=== PATIENT | female | born 1955 | race Caucasian/White ===

== ENCOUNTER 2016-08-17 12:46 | Outpatient (CLI) | payer BC | END 2016-08-17 12:47 | disposition home or self-care (01) | DX: Z12.31 Encounter for screening mammogram for malignant neoplasm of breast (principal) ==

== ENCOUNTER 2016-08-17 12:47 | Outpatient (CLI) | payer BC | END 2016-08-17 12:48 | disposition home or self-care (01) | DX: Z13.820 Encounter for screening for osteoporosis (principal); M81.0 Age-related osteoporosis without current pathological fracture; Z78.0 Asymptomatic menopausal state ==

== ENCOUNTER 2016-11-13 09:10 | Outpatient (CLI) | payer BC | END 2016-11-13 23:59 | DX: R30.0 Dysuria (principal) ==

== ENCOUNTER 2017-03-18 06:03 | Day surgery (SDC) | payer BC ==
[2017-03-18] MEDS ORDERED: LACTATED RINGERS 1,000 ML IV ONE (06:28)
--- NOTE | 2017-03-18 07:41 | HISTORY & PHYSICAL EXAMINATION ---
HPI - History of Present Illness HPI Comment/Other: History of Present Illness: patient is here for screening colonoscopy. Last performed 12 years ago and per patient was normal. Current Meds: VITAMIN D 1000 UNIT TABS (CHOLECALCIFEROL) Take six tablet by mouth daily for vit D deficiency LEVOTHYROXINE SODIUM 150 MCG ORAL TABS (LEVOTHYROXINE SODIUM) Take one tablet by mouth daily Past Medical History: Reviewed history and no changes required: Hypothyroidism R/mid thoracic pressure Hypovitaminosis D Rosacea Increased LFTs Hyperglycemia Past Surgical History: Reviewed history and no changes required: papilloma laser treatment Family History Summary: Reviewed history and no changes required: 12/02/2016 Mother (biol.) - Has Family History of Other Medical Problems - ovarian cancer - Entered On: 12/02/2016 Brother (full) - Has Family History of Other Medical Problems - Type I diabetes - Entered On: 12/02/2016 Social History: Reviewed history and no changes required: Problems were reviewed with the patient during this visit. Medications were reviewed with the patient during this visit. Allergies were reviewed with the patient during this visit. No known allergies. Physical Exam General: well developed, well nourished, in no acute distress Lungs: clear bilaterally to A & P Heart: regular rate and rhythm, S1, S2 without murmurs, rubs, gallops, or clicks Abdomen: bowel sounds positive; abdomen soft and non-tender without masses, organomegaly, or hernias noted Pulses: pulses normal in all 4 extremities Extremities: no clubbing, cyanosis, edema, or deformity noted with normal full range of motion of all joints Cervical Nodes: no significant adenopathy Psych: alert and cooperative; normal mood and affect; normal attention span and concentration Problems: Problems Added: 1) Dx of Screening, colon cancer ([id number]-C76.11) (ICD-V76.51) Impression & Recommendations: Problem # 1: surveillance for colon cancer Proceed with colonoscopy PMH/PSH - Past Medical History Cardiovascular: positive: None Respiratory: positive: None Endocrine/Autoimmune: positive: HyPOthyroidism GI: positive: None : positive: None HEENT: positive: None Psych: positive: None Musculoskeletal: positive: None Derm: positive: None MRSA Hx?: No - Past Surgical History General: positive: Colonoscopy Meds/Allgy - Home Medications Home Medications: Ambulatory Orders Medication Instructions Recorded Confirmed Levothyroxine [Synthroid] 50 mcg PO QDAC 08/23/17 08/24/17 - Allergies Allergies/Adverse Reactions: Allergies Allergy/AdvReac Type Severity Reaction Status Date / Time No Known Drug Allergies Allergy Verified 03/17/17 12:46 Exam - Vital Signs Vital Signs: Vital Signs x48h Temp Resp BP Pulse Ox 03/18/17 06:29 36.4 C L 18 135/95 H 96
[2017-03-18] MEDS ORDERED: MIDAZOLAM 2 MG/2 ML VIAL IVP ONE (08:20)
[2017-03-18] MEDS ORDERED: fentaNYL 100 MCG/2 ML VIAL IVP ONE (08:20)
[2017-03-18 08:43] VITALS: BP 112/74
== END 2017-03-18 06:04 | disposition home or self-care (01) ==
LOC: SDS 06:03
PROVIDERS: ATTEND Surgery
PROC: 0DBP8ZX Excision of Rectum, Via Natural or Artificial Opening Endoscopic, Diagnostic (ICD-10-PCS; principal; 2017-03-18 07:30)
DX: Z12.11 Encounter for screening for malignant neoplasm of colon (principal); K62.1 Rectal polyp; K57.30 Diverticulosis of large intestine without perforation or abscess without bleeding; K64.8 Other hemorrhoids; E03.9 Hypothyroidism, unspecified
CPT/HCPCS: 45380; J7120

== ENCOUNTER 2017-08-20 09:36 | Outpatient (CLI) | payer BC ==
[2017-08-20 17:42] LABS: BASOPHILS # (AUTO) 0.1 10^3/uL (0.0-0.1); BASOPHILS % (AUTO) 1.4 %; EOSINOPHILS # (AUTO) 0.2 10^3/uL (0.0-0.7); EOSINOPHILS % (AUTO) 5.2 %; HGB - HEMOGLOBIN 13.4 g/dL (12.0-16.0); LYMPHOCYTES # (AUTO) 1.5 10^3/uL (1.5-3.5); LYMPHOCYTES % (AUTO) 35.4 %; MEAN CORPUSCULAR HEMOGLOBIN 31.2 pg (27.0-31.0); MEAN CORPUSCULAR HGB CONC 32.7 g/dL (32.0-36.0); MEAN CORPUSCULAR VOLUME 95.5 fL (81.0-99.0); MEAN PLATELET VOLUME 7.9 fL (7.9-10.8); MONOCYTES # (AUTO) 0.4 10^3/uL (0.0-1.0); MONOCYTES % (AUTO) 9.5 %; NEUTROPHILS # (AUTO) 2.1 10^3/uL (1.5-6.6); NEUTROPHILS % (AUTO) 48.5 %; PLT - PLATELET COUNT 184 10^3/uL (130-450); RED BLOOD COUNT 4.29 10^6/uL (4.20-5.40); RED CELL DISTRIBUTION WIDTH 14.3 % (12.0-15.0); WHITE BLOOD COUNT 4.3 x10^3/uL (4.8-10.8)
[2017-08-20 18:09] LABS: ALBUMIN 4.4 g/dL (3.2-5.5); ALBUMIN/GLOBULIN RATIO 1.4 (1.0-2.2); ALKALINE PHOSPHATASE 88 IU/L (42-121); ALT ALANINE AMINOTRANSFERASE 22 IU/L (10-60); AST ASPARTATE AMINOTRANSFERASE 25 IU/L (10-42); BILIRUBIN,TOTAL 0.9 mg/dL (0.2-1.0); BUN - BLOOD UREA NITROGEN 16 mg/dL (6-20); CALCIUM 9.1 mg/dL (8.5-10.3); CARBON DIOXIDE - CO2 27 mmol/L (21-32); CHLORIDE 106 mmol/L (101-111); CHOL/HDL RATIO 4.5 (<4.4); CHOLESTEROL 268 mg/dL; CREATININE 0.8 mg/dL (0.4-1.0); GFR - MDRD 72 (>89); GLUCOSE 97 mg/dL (70-100); HDL CHOLESTEROL 59 mg/dL; LDL CHOLESTEROL,CALCULATED 180 mg/dL; LDL/HDL RATIO 3.1 (<4.4); SODIUM 138 mmol/L (135-145); TOTAL PROTEIN 7.6 g/dL (6.7-8.2); VLDL CHOLESTEROL 29 mg/dL
[2017-08-20 18:35] LABS: HB2 TOTAL 14.4 g/dL; HEMOGLOBIN A1C 0.45 g/dL
[2017-08-21 12:56] LABS: HEPATITIS C ANTIBODY NON-REACTIVE (NON-REACTIVE)
== END 2017-08-20 09:37 | disposition home or self-care (01) ==
LOC: LAB.F 09:36
PROVIDERS: ATTEND Physician Assistant Medical
DX: Z00.00 Encounter for general adult medical examination without abnormal findings (principal); E55.9 Vitamin D deficiency, unspecified; R73.9 Hyperglycemia, unspecified; Z79.899 Other long term (current) drug therapy; Z11.59 Encounter for screening for other viral diseases; E03.9 Hypothyroidism, unspecified
CPT/HCPCS: 36415; 80053; 80061; 82306; 83036; 83721; 84443; 85025; 86803

== ENCOUNTER 2017-08-26 14:00 | Outpatient (CLI) | payer BC | END 2017-08-26 14:01 | disposition home or self-care (01) | LOC: LAB.R 14:00 | PROVIDERS: ATTEND Physician Assistant Medical | DX: R30.0 Dysuria (principal) | CPT/HCPCS: 87086 ==

== ENCOUNTER 2017-09-03 13:08 | Outpatient (CLI) | payer BC ==
[2017-09-03 17:35] LABS: BILIRUBIN,URINE NEGATIVE (NEGATIVE); GLUCOSE, URINE (UA) NEGATIVE (NEGATIVE); KETONES,URINE (UA) TRACE mg/dL (NEGATIVE); LEUKOCYTE ESTERASE, URINE NEGATIVE (NEGATIVE); NITRITE,URINE NEGATIVE (NEGATIVE); OCCULT BLOOD,URINE NEGATIVE (NEGATIVE); PH,URINE 5.5 PH (5.0-7.5); PROTEIN,URINE NEGATIVE (NEGATIVE); UROBILINOGEN,URINE 0.2 (NORMAL) E.U./dL (NORMAL)
[2017-09-03 17:37] LABS: CLARITY,URINE CLOUDY (CLEAR)
[2017-09-03 17:49] LABS: BACTERIA,URINE None Seen /HPF (None Seen); RBC,URINE 0-5 /HPF (0-5); SQUAMOUS EPITHELIAL CELL,UR NONE SEEN (<= Few)
== END 2017-09-03 13:09 | disposition home or self-care (01) ==
LOC: LAB.F 13:08
PROVIDERS: ATTEND Physician Assistant Medical
DX: R30.0 Dysuria (principal)
CPT/HCPCS: 81001; 81003; 87086

== ENCOUNTER 2017-09-09 07:59 | Outpatient (CLI) | payer BC ==
[2017-09-09] MEDS ORDERED: IOPAMIDOL-300 100 ML VIAL ONE (08:32)
[2017-09-09] MEDS ORDERED: IOPAMIDOL-300 100 ML VIAL IVP ONE (09:35)
--- NOTE | 2017-09-09 15:54 | CT Report ---
CT ABDOMEN AND PELVIS WITH CONTRAST: 09/09/2017 CLINICAL INDICATION: Right flank pain. TECHNIQUE: Axial CT images of the abdomen and pelvis were obtained prior to and following 100 mL Isovue 300 intravenously, using split bolus technique. No previous CT is available for comparison. FINDINGS: Limited evaluation of the lung bases is unremarkable. ABDOMEN: On the unenhanced images, there is no evidence of nephrolithiasis or hydronephrosis. The kidneys demonstrate symmetric uptake and excretion of contrast. No focal parenchymal lesion or renal collecting system lesion is identified. Allowing for the phase of contrast enhancement, the liver, spleen, pancreas and adrenal glands appear unremarkable. The gallbladder is not dilated. No bowel dilatation, free gas, or free fluid is present. No abdominal adenopathy is seen. PELVIS: The distal ureters and urinary bladder appear unremarkable. Incidental note is made of a 3.1 cm right ovarian dermoid. No pelvic adenopathy or free fluid is present. Sigmoid diverticulosis is present, without CT evidence of diverticulitis. Osseous structures demonstrate degenerative changes. IMPRESSION: NO EVIDENT ETIOLOGY FOR PATIENT'S RIGHT FLANK PAIN. NO NEPHROLITHIASIS OR FOCAL RENAL ABNORMALITY. INCIDENTAL RIGHT OVARIAN DERMOID. In accordance with CT protocol optimization, one or more of the following dose reduction techniques were utilized for this exam: automated exposure control, adjustment of mA and/or KV based on patient size, or use of iterative reconstructive technique. TD: 09/09/2017 15:54
== END 2017-09-09 08:00 | disposition home or self-care (01) ==
LOC: DI 07:59
PROVIDERS: ATTEND Physician Assistant Medical
DX: R10.9 Unspecified abdominal pain (principal); M51.34 Other intervertebral disc degeneration, thoracic region
CPT/HCPCS: 72070; 74178; Q9967

== ENCOUNTER 2017-09-09 08:00 | Outpatient (CLI) | payer BC ==
--- NOTE | 2017-09-09 14:15 | XRAY Report ---
TWO VIEW THORACIC SPINE: 09/09/2017 CLINICAL INDICATION: Back pain. FINDINGS: Frontal and lateral views of the thoracic spine demonstrate mild degenerative disk disease. There is no evidence of compression fracture. No paraspinal hematoma is seen. IMPRESSION: MILD DEGENERATIVE DISK DISEASE. TD: 09/09/2017 14:14
== END 2017-09-09 08:01 | disposition home or self-care (01) ==
LOC: DI 08:00
PROVIDERS: ATTEND Physician Assistant Medical
DX: M51.34 Other intervertebral disc degeneration, thoracic region (principal)
CPT/HCPCS: 72070

== ENCOUNTER 2017-10-01 08:10 | Outpatient (CLI) | payer BC | END 2017-10-01 08:11 | disposition home or self-care (01) | LOC: LAB.F 08:10 | PROVIDERS: ATTEND Physician Assistant Medical | DX: E03.9 Hypothyroidism, unspecified (principal); Z79.899 Other long term (current) drug therapy | CPT/HCPCS: 36415; 84443 ==

== ENCOUNTER 2017-10-11 06:09 | Outpatient (CLI) | payer BC | END 2017-10-11 06:10 | disposition home or self-care (01) | LOC: LAB 06:09 | PROVIDERS: ATTEND Physician Assistant Medical | DX: Z79.899 Other long term (current) drug therapy (principal) | CPT/HCPCS: 36415; 82565 ==

== ENCOUNTER 2017-10-11 07:06 | Outpatient (CLI) | payer BC ==
[2017-10-11] MEDS ORDERED: GADOBUTROL 10 MMOL/10 ML VIAL ONE (07:51)
[2017-10-11] MEDS ORDERED: GADOBUTROL 10 MMOL/10 ML VIAL IVP ONE (08:24)
--- NOTE | 2017-10-11 17:23 | MRI Report ---
EXAM: MRI BRAIN WITHOUT AND WITH CONTRAST EXAM DATE: 10/11/2017 08:26 AM. CLINICAL HISTORY: Headache,neck pain, right. COMPARISON: None. TECHNIQUE: Multiplanar, multisequence T1-weighted and fluid-sensitive MR sequences of the brain were performed. Sequences optimized for routine evaluation. Other: None. IV Contrast: 8 mL Gadavist. FINDINGS: The diffusion-weighted images are normal. There is no evidence of acute or subacute cerebral infarcti on. There is a mucous retention cyst demonstrated at the base of the right maxillary sinus. There is a mi ld degree of mucosal thickening in the left maxillary sinus. The cerebral vascular flow voids are patent. The images are degraded by motion. The T2 axial FLAIR images are normal. The T2* sequence is normal. There is no evidence of subacute or chronic hemorrhage. The optic nerves demonstrate symmetric signal intensity and size. The bilateral parotid spaces exhibit normal signal intensity. There is a mucous retention cyst in the right maxillary sinus. The optic nerves demonstrate symmetric signal intensity and size. The cerebral vascular flow voids are patent. There is normal enhancement within the deep venous sinuses. There is normal enhancement within the br ain parenchyma. IMPRESSION: 1. The images are degraded by motion. 2. There is no significant white matter disease. 3. There is no evidence of acute or subacute cerebral infarction. 4. There is no evidence of brain mass. Referring Provider Line: [phone] SITE ID: [id number]
--- NOTE | 2017-10-12 14:11 | Ultrasound Report ---
CAROTID DUPLEX: 10/11/2017 CLINICAL INDICATION: Headache, neck pain. TECHNIQUE: Real-time sonographic vascular imaging was performed by the blow pit operator through the carotid arteries utilizing both color-flow and Doppler spectral analysis. Multiple paper sales representative static images were saved for review. RIGHT Vessel PSV cm/sec EDV cm/sec ICA/CCA RSV Ratio Degree of Stenosis Plaque Estimate % RCCA Prox 67 -- -- RCCA Dist 67 22 -- RECA 64 -- -- RT BULB 57 21 0.85 AKILAH Prox 70 26 1.04 AKILAH Mid 83 29 1.23 AKILAH Dist 74 26 1.10 RVA 53 -- -- RVA flow direction: Antegrade LEFT Vessel PSV cm/sec EDV cm/sec ICA/CCA RSV Ratio Degree of Stenosis Plaque Estimate % LCCA Prox 114 -- -- LCCA Dist 67 24 -- LECA 57 -- -- LFT BULB 50 17 0.74 LICA Prox 39 17 0.58 LICA Mid 79 26 1.1 LICA Dist 57 15 0.85 LVA 56 -- -- LVA flow direction: Antegrade Velocity criteria are extrapolated from diameter data as defined by the Society of Radiologists in Ultrasound Consensus Conference Radiology 2003; 229; 340-346. Degree of Stenosis % ICA PSV cm/sec ICA EDV cm/sec ICA/CCA PSV Ratio Plaque Estimate % Normal < 125 < 40 < 2.0 None <50 < 125 < 40 < 2.0 < 50 50-69 125-130 40-100 2.0-4.0 >/=50 >/=70 but less than near occlusion > 230 > 100 > 4.0 >/=50 Near occlusion High, low or undetectable Variable Variable Visible Total occlusion Undetectable Not applicable Not applicable No detectable lumen FINDINGS RIGHT: There is minimal plaquing in the right carotid bifurcation, without evidence of a focal hemodynamically significant stenosis. LEFT: There is minimal plaquing in the left carotid bifurcation, without evidence of a focal hemodynamically significant carotid stenosis. The vertebral arteries demonstrate antegrade flow bilaterally. IMPRESSION: MINIMAL PLAQUING BILATERALLY. NO EVIDENCE OF A FOCAL HEMODYNAMICALLY SIGNIFICANT CAROTID STENOSIS. TD: 10/11/2017 09:42 [facility]
== END 2017-10-11 07:07 | disposition home or self-care (01) ==
LOC: DI 07:06
PROVIDERS: ATTEND Physician Assistant Medical
DX: R51 Headache (principal); M54.2 Cervicalgia; Z79.899 Other long term (current) drug therapy
CPT/HCPCS: 36415; 70553; 82565; 93880; A9585

== ENCOUNTER 2019-03-17 14:48 | Outpatient (CLI) | payer MEDICARE, OTHER ==
--- NOTE | 2019-03-17 16:09 | Mammography Report ---
Reason: SCREENING MAMMO Procedure Date: 03/17/2019 Accession Number: [id number] / [id number] Procedure: SHANTELLE - Screening Mammo w/[place] CPT Code: FULL RESULT: EXAM: Screening Mammo w/[place] DATE: 03/17/2019 3:16 PM CLINICAL HISTORY: Routine screening. No reported personal or family history of breast cancer. TECHNIQUE: (B) - Bilateral CC and MLO views were obtained. COMPARISON: 08/17/2016, 04/30/2014 PARENCHYMAL PATTERN: (A) - The breasts demonstrate scattered fibroglandular densities bilaterally. FINDINGS: Bilateral breasts: There are no suspicious masses, calcifications, or areas of distortion. IMPRESSION: Negative examination. BI-RADS category 1. RECOMMENDATION: (ANNUAL) - Recommend routine annual screening mammography. BI-RADS CATEGORY: (1) - Negative. STANDARD QUALIFYING STATEMENTS: 1. This examination was not reviewed with the aid of Computer-Aided Detection (CAD). 2. A negative or benign imaging report should not preclude biopsy if clinically suspicious findings are present. 3. Dense breasts may obscure an underlying neoplasm. 4. This examination was reviewed with the aid of 3D breast imaging (tomosynthesis).
== END 2019-03-17 14:49 | disposition home or self-care (01) ==
LOC: DI 14:48
PROVIDERS: ATTEND Nurse Practitioner
DX: Z12.31 Encounter for screening mammogram for malignant neoplasm of breast (principal)
CPT/HCPCS: 77063; 77067

== ENCOUNTER 2019-03-28 12:46 | Outpatient (CLI) | payer MEDICARE, OTHER ==
--- NOTE | 2019-03-28 15:07 | XRAY Report ---
Reason: HX OF NORMAL MENOPAUSE,OA,HIPS BILAT Procedure Date: 03/28/2019 Accession Number: [id number] / [id number] Procedure: XR - Hip w/Pelvis 2-3V LT CPT Code: FULL RESULT: EXAM: LEFT HIP RADIOGRAPHY EXAM DATE: 03/28/2019 01:31 PM. CLINICAL HISTORY: History of normal menopause. Left hip pain x 2 months. Osteoarthritis of hips, bilateral. COMPARISON: None. TECHNIQUE: 2 views. FINDINGS: Bones: Minimal osteophytic spurring of the lateral acetabular margin. No fractures or bone lesion. Joints: Normal. No dislocation. The hip joint space is preserved. Soft Tissues: Normal. No soft tissue swelling. On AP exam, subtle amorphous calcification of the lateral right true pelvis, possibly related to bowel. IMPRESSION: Minimal degenerative changes at the left hip. RADIA
--- NOTE | 2019-03-29 08:58 | DEXA Report ---
Reason: HX OF NORMAL MENOPAUSE,OA,HIPS BILAT Procedure Date: 03/28/2019 Accession Number: [id number] / [id number] Procedure: DEX - Dexa Spine and/or Hip CPT Code: FULL RESULT: EXAM: Dexa Spine and/or Hip DATE: 03/28/2019 1:45 PM CLINICAL HISTORY: HX OF NORMAL MENOPAUSE,OA,HIPS BILAT thyroid disorder. TECHNIQUE: Dual energy x-ray absorptiometry (DXA) was performed on a [employer] System. Regions measured are the AP Spine, femoral neck, and if needed forearm. COMPARISON: 08/17/2016 In accordance with the International Society for Clinical Densitometry (ISCD) guidelines, data from previous exams may be reanalyzed using current recommendations and techniques. This is done to allow a more accurate basis for comparison with the current study. FINDINGS: The data for the lumbar spine is as follows: BMD (g/cm/cm) T-SCORE Z-SCORE REGION L1 0.727 -3.4 -2.9 L2 0.830 -3.1 -2.6 L3 0.863 -2.8 -2.4 L4 0.980 -1.8 -1.4 TOTAL 0.860 -2.7 -2.2 NOTE: All evaluable vertebrae are used for classification The data for the hip is as follows: BMD (g/cm/cm) T-SCORE Z-SCORE REGION Neck 0.731 -2.2 -1.5 TOTAL 0.766 -1.9 -1.5 NOTE: The femoral neck or total proximal femur, whichever is lowest, is used for classification. DXA RESULTS SUMMARY: Spine SCAN DATE AGE BMD CHANGE VS CHANGE VS PREVIOUS PREVIOUS % 1/28[birth year][age] 0[age]860 -0.026 -2.9 08[age]17/[age] 0[age]886 * Denotes significant change at the 95% confidence level. Denotes dissimilar scan types or analysis methods. DXA RESULTS SUMMARY: Hip SCAN DATE AGE BMD CHANGE VS CHANGE VS PREVIOUS PREVIOUS % 1/28[birth year]2019 64.1 0.766 -0.029 -3.6 [birth year]17[birth year]2016 61.5 0.795 * Denotes significant change at the 95% confidence level. Denotes dissimilar scan types or analysis methods. IMPRESSION: THE WHO CLASSIFICATION BASED ON THE INTERNATIONAL REFERENCE STANDARD IS OSTEOPOROSIS, REFERENCE LUMBAR SPINE. THE FRACTURE RISK IS HIGH. RECOMMENDATION: Patients with diagnosis of osteoporosis or osteopenia should have regular bone mineral density assessment. For those eligible for Medicare, routine testing is allowed once every 2 years. Testing frequency can be increased for patients who have rapidly progressing disease or for those who are receiving medical therapy to restore bone mass. COMMENT: World Health Organization (WHO) definitions for osteoporosis and osteopenia: NORMAL BMD: T-score at -1.0 or higher, fracture risk is low OSTEOPENIA BMD: T-score between -1.0 and -2.5, fracture risk is increased. OSTEOPOROSIS BMD: T-score at -2.5 or lower, fracture risk is high. National Osteoporosis Foundation recommends: 1. Obtain adequate dietary calcium (at least 1200 mg per day) and vitamin D (400-800 international units per day). 2. Participate, as appropriate, in regular weightbearing and muscle-strengthening exercise. 3. Avoid tobacco use and reduce alcohol and caffeine intake. 4. For more detailed information see the website at www.NOF.org.
== END 2019-03-28 12:47 | disposition home or self-care (01) ==
LOC: DI 12:46
PROVIDERS: ATTEND Nurse Practitioner
DX: M81.0 Age-related osteoporosis without current pathological fracture (principal); M16.12 Unilateral primary osteoarthritis, left hip
CPT/HCPCS: 77080

== ENCOUNTER 2019-06-09 08:26 | Outpatient (CLI) | payer MEDICARE, OTHER ==
[2019-06-09 10:30] LABS: BASOPHILS % (AUTO) 0.5 %; EOSINOPHILS # (AUTO) 0.2 10^3/uL (0.0-0.7); EOSINOPHILS % (AUTO) 5.1 %; LYMPHOCYTES # (AUTO) 1.4 10^3/uL (1.5-3.5); LYMPHOCYTES % (AUTO) 36.2 %; MEAN CORPUSCULAR HEMOGLOBIN 29.9 pg (27.0-31.0); MEAN CORPUSCULAR HGB CONC 32.1 g/dL (32.0-36.0); MEAN CORPUSCULAR VOLUME 93.1 fL (81.0-99.0); MEAN PLATELET VOLUME 9.2 fL (7.9-10.8); MONOCYTES # (AUTO) 0.4 10^3/uL (0.0-1.0); MONOCYTES % (AUTO) 10.9 %; NEUTROPHILS # (AUTO) 1.8 10^3/uL (1.5-6.6); PLT - PLATELET COUNT 169 10^3/uL (130-450); RED BLOOD COUNT 4.35 10^6/uL (4.20-5.40); RED CELL DISTRIBUTION WIDTH 13.7 % (12.0-15.0); WHITE BLOOD COUNT 3.8 x10^3/uL (4.8-10.8)
[2019-06-09 10:49] LABS: ALBUMIN 4.3 g/dL (3.2-5.5); ALBUMIN/GLOBULIN RATIO 1.3 (1.0-2.2); ALKALINE PHOSPHATASE 85 IU/L (42-121); ALT ALANINE AMINOTRANSFERASE 20 IU/L (10-60); AST ASPARTATE AMINOTRANSFERASE 25 IU/L (10-42); BILIRUBIN,TOTAL 0.8 mg/dL (0.2-1.0); BUN - BLOOD UREA NITROGEN 17 mg/dL (6-20); CALCIUM 9.3 mg/dL (8.5-10.3); CARBON DIOXIDE - CO2 23 mmol/L (21-32); CHLORIDE 109 mmol/L (101-111); CHOL/HDL RATIO 4.2 (<4.4); CHOLESTEROL 241 mg/dL; CREATININE 0.7 mg/dL (0.4-1.0); GFR - MDRD 84 (>89); GLUCOSE 106 mg/dL (70-100); HDL CHOLESTEROL 57 mg/dL; LDL CHOLESTEROL,CALCULATED 153 mg/dL; LDL/HDL RATIO 2.7 (<4.4); SODIUM 140 mmol/L (135-145); TOTAL PROTEIN 7.5 g/dL (6.7-8.2); VLDL CHOLESTEROL 31 mg/dL
[2019-06-09 10:52] LABS: HB2 TOTAL 13.2 g/dL; HEMOGLOBIN A1C 0.46 g/dL; HEMOGLOBIN A1C % 5.3 % (4.6-6.2)
== END 2019-06-09 08:27 | disposition home or self-care (01) ==
LOC: LAB.S 08:26
PROVIDERS: ATTEND Nurse Practitioner
DX: E78.2 Mixed hyperlipidemia (principal); Z79.899 Other long term (current) drug therapy; M81.0 Age-related osteoporosis without current pathological fracture; R73.9 Hyperglycemia, unspecified; E55.9 Vitamin D deficiency, unspecified; E03.9 Hypothyroidism, unspecified
CPT/HCPCS: 36415; 80053; 80061; 82306; 83036; 83721; 84443; 85025

== ENCOUNTER 2020-09-17 08:54 | Outpatient (CLI) | payer MEDICARE, OTHER ==
--- NOTE | 2020-09-20 12:32 | Mammography Report ---
BILATERAL DIGITAL SCREENING MAMMOGRAM 3D/2D: 09/17/2020 CLINICAL: Routine screening. Comparison is made to exams dated: 03/17/2019 mammogram, 08/17/2016 mammogram, and 04/30/2014 mammogram - [facility]. The tissue of both breasts is predominantly fatty. No significant masses, calcifications, or other findings are seen in either breast. There has been no significant interval change. IMPRESSION: NEGATIVE There is no mammographic evidence of malignancy. A 1 year screening mammogram is recommended. This exam was interpreted at Station ID: [id number]. NOTE: For mammograms, a report in lay terms will be sent to the patient. Approximately 15% of breast malignancies will not be visualized mammographically. In the management of a palpable breast mass, a negative mammogram must not discourage biopsy of a clinically suspicious lesion. Electronically Signed By: Ted Sunshine acr/penrad:09/17/2020 10:09:27 ACR BI-RADS Category 1: Negative 3341F PARENCHYMAL PATTERN: (F) - The breast(s) demonstrate(s) diffuse fatty replacement. BI-RADS CATEGORY: (1) - 1 RECOMMENDATION: (ANNUAL) - Recommend routine annual screening mammography. [id number] 1 year screening LATERALITY: (B)
== END 2020-09-17 08:55 | disposition home or self-care (01) ==
LOC: DI.S 08:54
PROVIDERS: ATTEND Nurse Practitioner
DX: Z12.31 Encounter for screening mammogram for malignant neoplasm of breast (principal)

== ENCOUNTER 2021-05-20 12:30 | Outpatient (CLI) | payer MEDICARE, OTHER ==
[2021-05-20 13:47] LABS: ALBUMIN 4.3 g/dL (3.2-5.5); ALBUMIN/GLOBULIN RATIO 1.3 (1.0-2.2); CALCIUM 9.7 mg/dL (8.5-10.3); CREATININE 0.8 mg/dL (0.4-1.0); POTASSIUM 4.1 mmol/L (3.5-5.0); TOTAL PROTEIN 7.6 g/dL (6.7-8.2)
[2021-05-20] MEDS ORDERED: GADOBUTROL 15 MMOL/15 ML VIAL ONE (14:09)
--- NOTE | 2021-05-20 16:21 | MRI Report ---
PROCEDURE: Brain W/WO INDICATIONS: ATRIAL FIBRILLATION CONTRAST: IV CONTRAST: Gadavist ml: 10.2 TECHNIQUE: Noncontrast axial T1 spin echo, axial T2 fast spin echo, sagittal and axial FLAIR, coronal T2 fast sp in echo, axial gradient echo, axial diffusion and ADC through the brain. After the administration of contrast, axial and coronal T1 spin echo with fat saturation through the brain. COMPARISON: MRI brain 10/11/2017 FINDINGS: Image quality: Excellent. The ventricular system and cortical sulci demonstrate atrophy, consistent for patient's stated age. There are areas of hyperintense T2/FLAIR signal in the periventricular and subcortical white matter. There is no acute intra or extra-axial fluid collection. No acute hemorrhage, mass lesion or midlin e shift. Brainstem is unremarkable. There are no areas of restricted diffusion. Globes are symmetr ical. Sinuses demonstrate mucus retention cyst versus polyp in the right maxillary sinus. Minimal flu id is noted within the left mastoid air cells. Osseous structures are intact. IMPRESSION: 1. No acute intracranial process. 2. Moderate atrophy and chronic microvascular ischemic changes. Reviewed by: Geri Conde MD on 05/20/2021 4:20 PM PDT Approved by: Geri Conde MD on 05/20/2021 4:20 PM PDT Station ID: [id number]
[2021-05-20] MEDS ORDERED: GADOBUTROL 15 MMOL/15 ML VIAL IVP ONE (16:52)
== END 2021-05-20 12:31 | disposition home or self-care (01) ==
LOC: LAB 12:30 → DI 12:31
PROVIDERS: ATTEND Family Medicine
DX: H53.9 Unspecified visual disturbance (principal); G44.89 Other headache syndrome; R03.0 Elevated blood-pressure reading, without diagnosis of hypertension; I67.2 Cerebral atherosclerosis
CPT/HCPCS: 36415; 70553; 80053; A9585

== ENCOUNTER 2021-05-20 12:33 | Outpatient (CLI) | payer MEDICARE, OTHER ==
--- NOTE | 2021-05-26 13:42 | DEXA Report ---
PROCEDURE: Dexa Spine and/or Hip INDICATIONS: OSTEOPENIA TECHNIQUE: Dual energy x-ray absorptiometry (DXA) was performed on a [employer] System. Regions measur ed are the AP Spine, femoral neck, and if needed forearm. COMPARISON: 03/28/2019. FINDINGS: Lumbar Spine: Bone Mineral Density 0.916 g/cm/cm,T score -2.2. There is interval 6.5% increase in total lumbar s pine bone mineral density. Left Hip: Bone Mineral Density 0.772 g/cm/cm,T score -1.9. There is interval 0.8% increase in total left hip b one mineral density. Left Femoral Neck: Bone Mineral Density 0.825 g/cm/cm, T score -1.5. (T score greater or equal to -1.0: NORMAL) (T score from -1.1 to -2.4: OSTEOPENIA) (T score less than or equal to -2.5 to: OSTEOPOROSIS) Impression: Osteopenia. Patients with diagnosis of osteoporosis or osteopenia should have regular bone mineral density assess ment. For those eligible for Medicare, routine testing is allowed once every 2 years. Testing frequ ency can be increased for patients who have rapidly progressing disease or for those who are receivin g medical therapy to restore bone mass. Reviewed by: Mahin Rust MD on 05/26/2021 1:40 PM PDT Approved by: Mahin Rust MD on 05/26/2021 1:40 PM PDT Station ID: [id number]
== END 2021-05-20 12:34 | disposition home or self-care (01) ==
LOC: DI 12:33
PROVIDERS: ATTEND Family Medicine
DX: M85.89 Other specified disorders of bone density and structure, multiple sites (principal); H53.9 Unspecified visual disturbance; G44.89 Other headache syndrome; R03.0 Elevated blood-pressure reading, without diagnosis of hypertension; I67.2 Cerebral atherosclerosis
CPT/HCPCS: 36415; 70553; 77080; 80053; A9585

== ENCOUNTER 2021-12-01 11:28 | Outpatient (CLI) | payer MEDICARE, OTHER ==
[2021-12-01] MEDS ORDERED: IOPAMIDOL-300 100 ML VIAL ONE (11:43)
[2021-12-01] MEDS ORDERED: IOVERSOL 320 50 ML VIAL ONE (11:43)
[2021-12-01 12:08] LABS: ALBUMIN/GLOBULIN RATIO 1.1 (1.0-2.2); BILIRUBIN,TOTAL 1.1 mg/dL (0.2-1.0); CALCIUM 9.4 mg/dL (8.5-10.3); CREATININE 0.7 mg/dL (0.4-1.0); POTASSIUM 4.5 mmol/L (3.5-5.0); TOTAL PROTEIN 7.5 g/dL (6.7-8.2)
--- NOTE | 2021-12-01 16:22 | CT Report ---
PROCEDURE: Abdomen/Pelvis W INDICATIONS: ABD PAIN CONTRAST: IV CONTRAST: Isovue 300 ml: 100 PO CONTRAST: Optiray 320 ml50 TECHNIQUE: After the administration of IV and oral contrast, 5 mm thick sections acquired from the diaphragms to the symphysis. 5 mm thick coronal and sagittal reformats were acquired. For radiation dose reducti on, the following was used: automated exposure control, adjustment of mA and/or kV according to atiya ent size. COMPARISON: CT IVP to 2017 FINDINGS: Image quality: Excellent. ABDOMEN: Lung bases: There is a 6 mm juxta fissural nodule at the right lung base. Lung bases are otherwise cl ear given slight respiratory motion. Heart size is normal. Mild aortic valvular and mitral annular c alcification. No hiatal hernia. Solid organs: The liver demonstrates diffuse hypodensity and left lobe elongation. No suspicious mas s. The spleen is enlarged measuring 16.0 cm in AP diameter and 15.2 cm in craniocaudal dimension. Gal lbladder is partially decompressed. Biliary system is nondilated. Pancreas and adrenal glands are unr emarkable. Kidneys symmetrically enhance and demonstrate several subcentimeter cortical cysts. No hyd ronephrosis or stone. Peritoneum and bowel: There is extensive sigmoid colonic diverticulosis. The remainder the colon, st omach, and small bowel loops are normal. No free fluid or air. Nodes and vessels: There are several mildly prominent periaortic retroperitoneal lymph nodes, one of the largest in the aortocaval region measures 9 mm. No bulky retroperitoneal or mesenteric adenopath y by size criteria. Aorta and inferior vena cava are normal in size. The abdominal aorta demonstrate s moderate to heavy atherosclerotic calcification. The portal vein is distended and measures 2.0 cm d istal to the confluence. Miscellaneous: No ventral hernias. PELVIS: Genitourinary: Bladder wall thickness is normal. The uterus and left ovary are normal. There is a f at-containing right ovarian mass measuring 2.9 x 2.9 x 3.1 cm also containing a coarse calcification. No change compared to the prior study from over 4 years ago. There is no suspicious periovarian flui d or inflammation. Miscellaneous: No inguinal hernias or adenopathy. Bones: No suspicious bony lesions. Mild left hip joint degeneration. No vertebral body compression f ractures. IMPRESSION: 1. Stable right ovarian dermoid measuring 3.1 cm. 2. Hepatomegaly and mild hepatic steatosis, stable. 3. There is slight worsening of portal hypertension compared to the prior study given increased splee n size and portal vein diameter. 4. Significant colonic diverticulosis without acute diverticulitis. 5. Borderline retroperitoneal adenopathy. 6. 6 mm juxta fissural low right lung nodule. This was present previously but has grown. CT chest for full evaluation is recommended. Reviewed by: Sun Angel MD on 12/01/2021 4:21 PM PDT Approved by: Sun Angel MD on 12/01/2021 4:21 PM PDT Station ID: [id number]
[2021-12-01] MEDS ORDERED: IOPAMIDOL-300 100 ML VIAL IVP ONE (21:52)
[2021-12-01] MEDS ORDERED: IOVERSOL 320 50 ML VIAL PO ONE (21:52)
== END 2021-12-01 11:29 | disposition home or self-care (01) ==
LOC: DI 11:28
PROVIDERS: ATTEND Family Medicine
DX: D27.0 Benign neoplasm of right ovary (principal); K76.0 Fatty (change of) liver, not elsewhere classified; R16.0 Hepatomegaly, not elsewhere classified; K76.6 Portal hypertension; K57.30 Diverticulosis of large intestine without perforation or abscess without bleeding; R59.0 Localized enlarged lymph nodes; R91.1 Solitary pulmonary nodule
CPT/HCPCS: 36415; 74177; 80053; Q9967

== ENCOUNTER 2022-10-21 06:57 | Outpatient (CLI) | payer MEDICARE, OTHER ==
--- NOTE | 2022-10-21 11:59 | Ultrasound Report ---
PROCEDURE: Abdomen Complete INDICATIONS: ABN LIVER FUNCTION TEST TECHNIQUE: Real-time scanning was performed of the abdominal and retroperitoneal organs, with image documentatio n. COMPARISON: None. FINDINGS: Liver: Increased liver echogenicity. Gallbladder: Unremarkable. Biliary ducts: Intrahepatic bile ducts are non-dilated. Extrahepatic bile duct caliber measures 4.4 mm. Normal is 6-7 mm or less in diameter, or 10 mm or less post-cholecystectomy. Pancreas: Visualized portions of the pancreas are sonographically normal. Spleen: Spleen is enlarged, measuring 16.0 x 14.8 x 6.7 cm, volume of 830 cc. Kidneys: Kidneys are normal in size and echotexture. Right kidney measures 9.3 cm long; left kidney measures 11.3 cm long. No hydronephrosis or nephrolithiasis. No solid masses. Aorta: Visualized aorta is normal in caliber at less than 3 cm. Iliacs: Proximal common iliac arteries are normal in caliber at less than 2.5 cm. IVC: Intrahepatic inferior vena cava is patent. Miscellaneous: No free abdominal fluid. IMPRESSION: Massive hepatomegaly. In the setting of thrombocytopenia, findings are concerning for lymphoma. Hepatic steatosis. Reviewed by: Aravind Lu on 10/21/2022 11:58 AM PDT Approved by: Aravind Lu on 10/21/2022 11:58 AM PDT Station ID: [id number]
== END 2022-10-21 06:58 | disposition home or self-care (01) ==
LOC: DI 06:57
PROVIDERS: ATTEND Family Medicine
DX: D69.6 Thrombocytopenia, unspecified (principal); R94.5 Abnormal results of liver function studies; R16.0 Hepatomegaly, not elsewhere classified; K76.0 Fatty (change of) liver, not elsewhere classified

== ENCOUNTER 2022-10-22 17:22 | Outpatient (CLI) | payer MEDICARE, OTHER ==
[2022-10-22] MEDS ORDERED: iohexoL-300 100 ML VIAL ONE (17:30)
[2022-10-22] MEDS ORDERED: DIATR MEGLU/DIATRIZOATE SODIUM 120 ML BOTTLE ONE (17:32)
[2022-10-22] MEDS ORDERED: iohexoL-300 100 ML VIAL IVP ONE (18:59)
[2022-10-22] MEDS ORDERED: DIATRIZOATE MEGLU/DIATRIZO SOD 30 ML BOTTLE PO ONE (19:00)
--- NOTE | 2022-10-22 19:28 | CT Report ---
PROCEDURE: CHEST W INDICATIONS: HEPATOMEGALY, SPLENOMEGALY,THROMBOCYTOPENIA CONTRAST:100mL Omni 300 TECHNIQUE: After the administration of intravenous contrast, 1 mm axial images were acquired from the pulmonary apices through the posterior costophrenic angles. Axial 5 mm soft tissue kernel reconstructions were performed as well as 8 mm axial MIP and coronal and sagittal 5 mm reformations. For radiation dose reduction, the following was used: automated exposure control, adjustment of mA and/or kV according to patient size. COMPARISON: None. FINDINGS: Image quality: Good Lungs and pleura:No airspace consolidation. No pleural effusions. Mild peripheral reticulation. No ne w or enlarging suspicious pulmonary nodules. Right base nodule again seen (). Mediastinum, heart, and esophagus: No supraclavicular lymphadenopathy, prominent upper mediastinal an d precarinal lymph nodes are stable, not enlarged by size criteria. No hiatal hernia. There is stuart ry disease. Chest wall and thyroid: Thyroid is not seen. Chest wall is unremarkable. Upper abdomen: Separately dictated Bones: No acute or suspicious osseous finding. There are degenerative changes. IMPRESSION: No acute changes compared to prior imaging. Similar prominent mediastinal lymph nodes. No new or enla rging pulmonary nodule. Consider follow-up if there is an oncologic indication. Reviewed by: Ankush Lu MD on 10/22/2022 7:26 PM PDT Approved by: Ankush Lu MD on 10/22/2022 7:26 PM PDT Station ID: [id number]
--- NOTE | 2022-10-22 19:35 | CT Report ---
PROCEDURE: ABDOMEN/PELVIS W INDICATIONS: HEPATOMEGALY, SPLENOMEGALY,THROMBOCYTOPENIA CONTRAST: : 100mL Omni 300 IV and oral TECHNIQUE: After the administration of IV and oral contrast, 5 mm thick sections acquired from the diaphragms to the symphysis. 5 mm thick coronal and sagittal reformats were acquired. For radiation dose reducti on, the following was used: automated exposure control, adjustment of mA and/or kV according to atiya ent size. COMPARISON: Ultrasound 10/21/2022, CT 12/01/2021 FINDINGS: Image quality: Good Lower chest: Separately dictated Solid organs: Mild hepatomegaly again seen, measuring in transverse dimension overall 22 cm, similar to 2022 imaging. No focally suspicious hepatic lesion. There is suggestion of steatosis, not well radha luated on noncontrast imaging. Gallbladder is unremarkable. No pathologic dilation of the biliary tree or pancreatic duct. No spleno megaly. Splenomegaly with a craniocaudal dimension of 17 cm This is also stable compared to 2022. No adrenal nodules. No hydronephrosis. Micro-Bosniak Vessels and lymph nodes: Atherosclerotic calcifications. Portal vein is patent. Persistently dilated portal vein. No abdominal aortic aneurysm or pathologic adenopathy by size criteria. Overall prominen t retroperitoneal lymph nodes are stable compared to prior imaging Bowel and peritoneum: No evidence of bowel obstruction. No pathologic ascites. Colonic diverticulosis . Body wall: Unremarkable Pelvis: Bladder is unremarkable. Suspected right dermoid cyst, as before. Uterus is not well evaluate d on this study. Bones: There are degenerative changes without acute or suspicious osseous abnormality. IMPRESSION: Mild hepatomegaly and moderate splenomegaly again seen. Please note dictation error in prior ultrasou nd report (splenomegaly, not hepatomegaly). Suspected hepatic steatosis. Persistently dilated portal vein. No acute changes compared to CT from 2021. Prominent retroperitoneal lymph nodes, overall not enlarged by size criteria. Suspected right dermoid cyst. Reviewed by: Ankush Lu MD on 10/22/2022 7:33 PM PDT Approved by: Ankush Lu MD on 10/22/2022 7:33 PM PDT Station ID: [id number]
== END 2022-10-22 17:23 | disposition home or self-care (01) ==
LOC: DI 17:22
PROVIDERS: ATTEND Family Medicine
DX: R16.2 Hepatomegaly with splenomegaly, not elsewhere classified (principal); D69.6 Thrombocytopenia, unspecified; I87.8 Other specified disorders of veins
CPT/HCPCS: 71260; 74177; Q9963; Q9967

== ENCOUNTER 2022-11-18 12:37 | Outpatient (CLI) | payer MEDICARE, OTHER ==
[2022-11-18 14:33] LABS: HCT - HEMATOCRIT 41.1 % (37.0-47.0); HGB - HEMOGLOBIN 13.5 g/dL (12.0-16.0); MEAN CORPUSCULAR HGB CONC 32.8 g/dL (32.0-36.0); MEAN CORPUSCULAR VOLUME 97.4 fL (81.0-99.0); MEAN PLATELET VOLUME 9.3 fL (7.9-10.8); RED BLOOD COUNT 4.22 10^6/uL (4.20-5.40); RED CELL DISTRIBUTION WIDTH 14.9 % (12.0-15.0); WHITE BLOOD COUNT 3.8 x10^3/uL (4.8-10.8)
[2022-11-18 14:40] LABS: INR 1.2 (0.8-1.2); PT - PROTHROMBIN TIME 13.5 secs (9.9-12.6)
[2022-11-18 14:52] LABS: ALBUMIN 3.9 g/dL (3.2-5.5); ALBUMIN/GLOBULIN RATIO 1.3 (1.0-2.2); BILIRUBIN,TOTAL 1.6 mg/dL (0.2-1.0); CALCIUM 9.1 mg/dL (8.5-10.3); CREATININE 0.8 mg/dL (0.4-1.0); MAGNESIUM 2.2 mg/dL (1.7-2.8); POTASSIUM 3.9 mmol/L (3.5-5.0); TOTAL PROTEIN 6.9 g/dL (6.7-8.2)
[2022-11-18 15:02] LABS: THYROID STIMULATING HORMONE 1.46 uIU/mL (0.34-5.60)
[2022-11-19 08:10] LABS: HBsAG SCREEN Negative (Negative)
[2022-11-20 00:07] LABS: HCV AB Non Reactive (Non Reactive)
== END 2022-11-18 12:38 | disposition home or self-care (01) ==
LOC: LAB.S 12:37
PROVIDERS: ATTEND Family Medicine
DX: R16.2 Hepatomegaly with splenomegaly, not elsewhere classified (principal); R79.89 Other specified abnormal findings of blood chemistry; D69.6 Thrombocytopenia, unspecified; E03.9 Hypothyroidism, unspecified
CPT/HCPCS: 36415; 80053; 83735; 84443; 85027; 85610; 86704; 86803; 87340

== ENCOUNTER 2022-11-26 08:00 | Outpatient (CLI) | payer MEDICARE, OTHER | END 2022-11-26 23:59 | disposition home or self-care (01) | LOC: LAB 08:00 | PROVIDERS: ATTEND Nurse Practitioner Family | DX: Z20.09 Contact with and (suspected) exposure to other intestinal infectious diseases (principal) | CPT/HCPCS: 87045; 87046; 87427 ==

== ENCOUNTER 2022-12-01 08:00 | Outpatient (CLI) | payer MEDICARE, OTHER | END 2022-12-01 23:59 | disposition home or self-care (01) | LOC: LAB 08:00 | PROVIDERS: ATTEND Nurse Practitioner Family | DX: Z20.09 Contact with and (suspected) exposure to other intestinal infectious diseases (principal) | CPT/HCPCS: 87177 ==

== ENCOUNTER 2024-02-16 08:18 | Outpatient (CLI) | payer MEDICARE, OTHER ==
[2024-02-16 08:32] LABS: BASOPHILS # (AUTO) 0.1 10^3/uL (0.0-0.1); BASOPHILS % (AUTO) 1.8 %; EOSINOPHILS # (AUTO) 0.1 10^3/uL (0.0-0.7); EOSINOPHILS % (AUTO) 4.6 %; HCT - HEMATOCRIT 40.1 % (37.0-47.0); LYMPHOCYTES # (AUTO) 0.8 10^3/uL (1.5-3.5); LYMPHOCYTES % (AUTO) 28.8 %; MEAN CORPUSCULAR HEMOGLOBIN 32.2 pg (27.0-31.0); MEAN CORPUSCULAR HGB CONC 32.4 g/dL (32.0-36.0); MEAN CORPUSCULAR VOLUME 99.3 fL (81.0-99.0); MEAN PLATELET VOLUME 9.4 fL (7.9-10.8); MONOCYTES # (AUTO) 0.3 10^3/uL (0.0-1.0); MONOCYTES % (AUTO) 10.2 %; NEUTROPHILS # (AUTO) 1.6 10^3/uL (1.5-6.6); NEUTROPHILS % (AUTO) 54.2 %; PLT - PLATELET COUNT 76 10^3/uL (130-450); RED BLOOD COUNT 4.04 10^6/uL (4.20-5.40); RED CELL DISTRIBUTION WIDTH 15.8 % (12.0-15.0); WHITE BLOOD COUNT 2.9 x10^3/uL (4.8-10.8)
[2024-02-16 08:44] LABS: SLIDE REVIEW? Indicated
[2024-02-16 08:48] LABS: ALBUMIN/GLOBULIN RATIO 1.4 (1.0-2.2); ALKALINE PHOSPHATASE 135 IU/L (42-121); ALT ALANINE AMINOTRANSFERASE 25 IU/L (10-60); AST ASPARTATE AMINOTRANSFERASE 46 IU/L (10-42); BILIRUBIN,TOTAL 1.4 mg/dL (0.2-1.0); BUN - BLOOD UREA NITROGEN 15 mg/dL (6-20); CALCIUM 9.5 mg/dL (8.5-10.3); CARBON DIOXIDE - CO2 26 mmol/L (21-32); CHLORIDE 108 mmol/L (101-111); CHOL/HDL RATIO 3.2 (<4.4); CHOLESTEROL 222 mg/dL; CREATININE 0.8 mg/dL (0.6-1.3); GFR - MDRD 71 (>89); GLUCOSE 112 mg/dL (74-104); HDL CHOLESTEROL 70 mg/dL; LDL CHOLESTEROL,CALCULATED 131 mg/dL; LDL/HDL RATIO 1.9 (<4.4); SODIUM 139 mmol/L (135-145); TOTAL PROTEIN 6.9 g/dL (6.4-8.9); TRIGLYCERIDES 106 mg/dL; VLDL CHOLESTEROL 21 mg/dL
[2024-02-16 09:00] LABS: THYROID STIMULATING HORMONE 10.47 uIU/mL (0.34-5.60)
[2024-02-16 09:14] LABS: RBC MORPHOLOGY (MULTIPLE) 2+ ANISOCYTOSIS (NORMAL)
== END 2024-02-16 08:19 | disposition home or self-care (01) ==
LOC: LAB 08:18
PROVIDERS: ATTEND Nurse Practitioner Family
DX: Z00.00 Encounter for general adult medical examination without abnormal findings (principal); E66.9 Obesity, unspecified; E03.9 Hypothyroidism, unspecified
CPT/HCPCS: 36415; 80053; 80061; 83036; 83721; 84439; 84443; 85025